=== PATIENT | female | born 1980 | race Caucasian/White ===

== ENCOUNTER 2018-03-14 19:38 | Outpatient (CLI) | payer BC ==
[2018-03-14 20:21] VITALS: BP 120/63; PULSE 85; RESP 16; TEMP 97.1
--- NOTE | 2018-03-17 10:05 | P.MSEPDOC ---
Presenting Problems - Arrival Data Date of Arrival on Unit: 03/14/18 Time of Arrival on Unit: 19:33 Mode of Transport: Wheelchair - Complaint OB-Reason for Admission/Chief Complaint: Possible Onset of Labor Comment: 03/14/18 @1530 Medical History - Information : 3 Para: 2 Term: 2 : 0 Abortions: Spontaneous or Elective: 0 Number of Living Children: 2 - Gestational Age Gestational Age by DOC (wks/days): 37 Weeks and 6 Days - History Sexually Transmitted Diseases: HSV Comment: on valtrex, no sxs Review of Systems - Review of Systems Constitutional: No problems Breast: No problems ENT: No problems Cardiovascular: No problems Respiratory: No problems Gastrointestinal: No problems Genitourinary: No problems Musculoskeletal: No problems Neurological: No problems Skin: No problems Vital Signs - Temperature Temperature: 97.1 F Temperature Source: Temporal Artery Scan - Pulse Right Sitting Brachial Pulse Rate: 85 Pulse Assessment Method: Automatic Cuff - Respirations Respiratory Rate: 16 - Blood Pressure Right Arm Blood Pressure: 120/63 Blood Pressure Mean: 82 Blood Pressure Source: Automatic Cuff Medical Screen Scoring (Pre) - Cervical Exam Dilation: 1-3 cm = 1 Effacement: Exam Deferred Membranes: Intact - Uterine Contractions Frequency: > 5 minutes apart = 1 Duration: N/A Intensity: N/A - Maternal Vital Signs Maternal Temperature: N/A Maternal Blood Pressure: N/A Signs of Preeclampsia: N/A Maternal Respirations: N/A - Pain Assessment Pain Location and Character: Abdomen Pain Scale Used: Numeric (1 - 10) Pain Intensity: 4 Pain Management Goal: 2 Pain Description: *Acute, Cramping Pain Radiation Location: none Pain Frequency: Intermittent Pain Duration: 2 Pain Duration Units: Hours Pain Behavior: None Exhibited Pain Aggravating Factors: None Non-Pharmacological Interventions: Relaxation Technique - Maternal Trauma Maternal Trauma: N/A - Assessment Baseline FHR: 135 Heart Rate - NICHD Category: Category I (Normal) = 0 NST: Reactive Position: N/A Station: N/A - Total Score Total Score (Pre): 2 - Level of Risk Level of Risk: Low (0-5) Physician Notification (Pre) - Physician Notified Physician Notified Date: 03/14/18 Physician Notified Time: 20:48 Physician/Practitioner Notifed:: L[place]yer New Order Received: Yes - Notification Comment Comment: discharge home with instructions Disposition - Disposition OB Disposition: Discharge to home, Written follow up instructions reviewed Discharge Date: 03/14/18 Discharge Time: 20:55 I agree with the RN Medical Screening Exam: Yes Risk & Benefit of care provided described in d/c instruction: Yes Diagnosis: FALSE LABOR AT OR AFTER 37 COMPLETED WEEKS OF GESTATION
== END 2018-03-14 20:55 | disposition home or self-care (01) ==
LOC: FBPOP 19:38
PROVIDERS: ATTEND Obstetrics & Gynecology
DX: O47.1 False labor at or after 37 completed weeks of gestation (principal); Z3A.37 37 weeks gestation of pregnancy
CPT/HCPCS: 59025; 99213

== ENCOUNTER → 2018-03-15 | Outpatient (CLI) | payer BC ==
--- NOTE | 2018-03-15 21:47 | US ---
EXAMINATION TYPE: US OB limited DATE OF EXAM: 03/15/2018 COMPARISON: NONE CLINICAL HISTORY: KARINA. KARINA check EXAM PERFORMED: Transabdominal (TA) GESTATIONAL AGE / DATING Physician Established: (38 weeks/0 days) EDC: 03/29/2018 No growth performed on today?s study per ordering physician SURVEY KARINA: 16.06 cm Normal Ultrasound evidence of premature rupture of membranes? No HEART RATE: 136 bpm RHYTHM: Normal IMPRESSION: Negative examination.
== END ==
LOC: FBPOP 20:00
PROVIDERS: ATTEND Obstetrics & Gynecology
DX: O47.1 False labor at or after 37 completed weeks of gestation (principal); Z3A.38 38 weeks gestation of pregnancy
CPT/HCPCS: 76815

== ENCOUNTER 2018-03-31 20:54 | Inpatient (IN) | payer BC ==
[2018-03-31] MEDS ORDERED: OXYTOCIN 20 UNITS/1000 ML NS 1,000 ML IV SCH (21:30)
[2018-03-31] MEDS ORDERED: TERBUTALINE 1 MG/ML VIAL SQ PRN (21:30)
[2018-03-31] MEDS ORDERED: OXYTOCIN 10 UNIT/ML 1 ML VIAL IM PRN (21:30)
[2018-03-31] MEDS ORDERED: METHYLERGONOVINE 0.2 MG/ML 1 ML AMP IM PRN (21:30)
[2018-03-31] MEDS ORDERED: LIDOCAINE 1% (PF) 10 MG/ML (30 ML SDV) SQ PRN (21:30)
[2018-03-31] MEDS ORDERED: CARBOPROST TROMETHAMINE 250 MCG/ML 1 ML AMP IM PRN (21:30)
[2018-03-31] MEDS ORDERED: BUTORPHANOL 1 MG/ML 1 ML VIAL IV PRN (21:34)
[2018-03-31] MEDS: LACTATED RINGERS 1,000 ML IV SCH (22:07)
[2018-03-31 22:20] LABS: Basophils % (A) 0 %; Eosinophils # (A) 0.1 k/uL (0-0.7); Eosinophils % (A) 1 %; HGB 12.7 gm/dL (11.4-16.0); Lymphocytes # (A) 2.1 k/uL (1.0-4.8); Lymphocytes % (A) 21 %; MCH 31.2 pg (25.0-35.0); MCHC 34.4 g/dL (31.0-37.0); MCV 90.8 fL (80.0-100.0); Mean Platelet Volume 8.4; Monocytes # (A) 0.5 k/uL (0-1.0); Monocytes % (A) 5 %; Neutrophils # (A) 7.1 k/uL (1.3-7.7); Neutrophils % (A) 71 %; Platelet Count 179 k/uL (150-450); RBC 4.08 m/uL (3.80-5.40)
[2018-04-01] MEDS: LACTATED RINGERS 1,000 ML IV SCH ×2 (02:10→03:13)
[2018-04-01] MEDS ORDERED: ROPIVACAINE 100 MG, fentaNYL (PF) 200 MCG in SODIUM CHLORIDE 0.9% 76 ML EPIDURAL ONE (02:29)
[2018-04-01] MEDS ORDERED: BENZOCAINE/MENTHOL SPRAY 1 GM/SPRAY AEROSOL TOPICAL PRN ×2 (04:35→04:40)
--- NOTE | 2018-04-01 04:37 | P.HPOB ---
History of Present Illness H&P Date: 04/01/18 Chief Complaint: Labor at 40-2/7 weeks' This is a 37-year-old 3 para 2002 woman with an estimated due date of presents at 40-3/7 weeks gestation with spontaneous rupture of membranes not in active labor. Her has been uncomplicated. She is on Valtrex HSV suppression with no recent outbreaks or prodromal symptoms. She describes spontaneous rupture of clear fluid at approximately 1815 on 713. She denies vaginal bleeding. She is not having regular contractions. 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 Obstetric history: Normal spontaneous vaginal deliveries at term in 2008 and 2013. Laboratory data group B strep negative and blood type O+ antibody screen negative, rubella immune, VDRL nonreactive, hep Elly surface antigen negative, HIV negative, gonorrhea and clinic cultures negative, TSH within normal limits. Review of Systems All systems: negative Past Medical History Past Medical History: Thyroid Disorder Additional Past Medical History / Comment(s): hypothyroid History of Any Multi-Drug Resistant Organisms: None Reported Additional Past Surgical History / Comment(s): wisdom teeth, exploratory lap for endometriosis Past Anesthesia/Blood Transfusion Reactions: No Reported Reaction Past Psychological History: Anxiety Additional Psychological History / Comment(s): not currently medicated Smoking Status: Never smoker Past Alcohol Use History: None Reported Past Drug Use History: None Reported - Past Family History Father Family Medical History: Cancer, Hypertension Additional Family Medical History / Comment(s): prostate cancer Mother Family Medical History: Thyroid Disorder Medications and Allergies Home Medications Medication Instructions Recorded Confirmed Type Levothyroxine Sodium [Synthroid] 1 tab PO DAILY 03/14/18 03/31/18 History Pnv,Calcium 72/Iron/Folic Acid 1 tab PO DAILY 03/31/18 03/31/18 History [ Plus Tablet] valACYclovir [Valtrex] 500 mg PO DAILY 03/31/18 03/31/18 History Allergies Allergy/AdvReac Type Severity Reaction Status Date / Time No Known Allergies Allergy Verified 03/31/18 21:04 Exam Vital Signs Temp Pulse Resp BP Pulse Ox 03/31/18 21:20 97.3 F L 85 16 110/71 97 03/31/18 21:06 97.3 F L 85 16 110/71 97 Intake and Output 03/31/18 03/31/1818 14:59 22:59 06:59 Intake Total 1999 Balance 1999 Intake: Intake, IV Titration 2000 Amount Lactated Ringers 1,000 ml 2000 @ 125 mls/hr IV .Q8H SUZANNE Rx#:[id number] Other: # Voids 1 Weight 83.007 kg Per labor and delivery driver/customer service spontaneous rupture of membranes is confirmed with amnio sure test. She has 2 cm dilated the head not engaged. heart tones are reassuring by external monitoring and she has some uterine irritability. Results Result Diagrams: 03/31/18 21:51 Assessment and Plan (1) Advanced maternal age (AMA) in Current Visit: Yes Status: Acute Code(s): [id number] - SNOMED Code(s): 399775183 (2) Spontaneous rupture of membranes Current Visit: Yes Status: Acute Code(s): EWS8343 - SNOMED Code(s): 054610372 Plan: 37-year-old 3 para 2 woman at 40-3/7 weeks gestation admitted with spontaneous rupture of membranes not in labor. She is group B strep negative and Rh+. Pitocin induction of labor will be initiated. Epidural for pain control upon request in active labor. status reassuring by external monitoring. Anticipate normal spontaneous vaginal delivery.
[2018-04-01] MEDS ORDERED: SIMETHICONE 80 MG CHEWABLE PO PRN (04:40)
[2018-04-01] MEDS ORDERED: ZOLPIDEM 5 MG TAB PO PRN (04:40)
[2018-04-01] MEDS ORDERED: WITCH HAZEL 1 EACH MED..PAD TOPICAL PRN (04:40)
[2018-04-01] MEDS ORDERED: diphenhydrAMINE 50 MG CAP PO PRN (04:40)
[2018-04-01] MEDS ORDERED: diphenhydrAMINE 25 MG CAP PO PRN (04:40)
[2018-04-01] MEDS ORDERED: diphenhydrAMINE 50 MG/ML 1 ML VIAL IVP PRN ×2 (04:40)
[2018-04-01] MEDS ORDERED: LANOLIN CREAM 5 GM TUBE TOPICAL PRN (04:40)
[2018-04-01] MEDS ORDERED: HYDROCORTISONE 2.5% RECTAL CREAM 30 GM TUBE RECTAL PRN (04:40)
--- NOTE | 2018-04-01 04:40 | P.PROBDLV ---
Vaginal Delivery Note - . Vaginal Delivery Note: Findings: Male infant in the vertex left occiput anterior position with Apgars of 9 at 1 minute and 9 at 5 minutes weighing 9 lbs. 1 oz., 4100 g. First- degree perineal laceration. Intact, three-vessel cord placenta. EBL 150 mL's. Delivery summary: This is a 37-year-old 3 para 2001 woman who presented at 40-3/7 weeks gestation with spontaneous rupture of membranes not in labor. She was admitted and received Pitocin induction of labor. She received an epidural anesthetic. She underwent an unremarkable progression to complete cervical dilation. At the time of complete she did have some variable heart rate decelerations that was managed with position changes decreasing the Pitocin and maternal oxygen. On these resolved and she was repositioned in the modified workup Kori position to push. She did push with excellent maternal effort to . With additional maternal effort the head delivered from the left occiput anterior position on there was a compound presentation with the hand below the head. The rest the was delivered without difficulty onto the field and the nose and mouth were further bulb suctioned. The infant was placed on the maternal abdomen. Apgars were 9 at 1 minute and 9 at 5 minutes. Eventually the cord was clamped and cut. An intact , three-vessel cord placenta was then expressed and the uterus was massaged and noted to be firm at the level of the umbilicus. Perineum was infused with lidocaine and a small first-degree laceration was closed using 3-0 Vicryl suture. The patient received Pitocin following delivery of the placenta. The rest the vagina and cervix were inspected no further lacerations were noted. EBL was approximately 150 mL's. All counts were correct. Both mother and infant were doing well post delivery in the room.
[2018-04-01] MEDS ORDERED: OXYTOCIN 20 UNITS/1000 ML NS 1,000 ML IV SCH (04:45)
[2018-04-01] MEDS: IBUPROFEN 600 MG TAB PO PRN ×2 (11:35→19:32)
[2018-04-01] MEDS: ACETAMINOPHEN TAB 325 MG TAB PO PRN ×2 (15:43→23:29)
[2018-04-01] MEDS: SENNOSIDES-DOCUSATE SODIUM 1 EACH TAB PO SCH (19:33)
[2018-04-02] MEDS: IBUPROFEN 600 MG TAB PO PRN ×2 (04:49→11:17)
--- NOTE | 2018-04-02 09:12 | P.DS ---
Providers Date of admission: 03/31/18 21:18 Expected date of discharge: 04/02/18 Attending physician: Pascual Nevarez Primary care physician: Pascual Nevarez - Discharge Diagnosis(es) (1) Advanced maternal age (AMA) in Current Visit: Yes Status: Acute (2) Spontaneous rupture of membranes Current Visit: Yes Status: Acute (3) Normal spontaneous vaginal delivery Current Visit: Yes Status: Acute Hospital Course: This is a 37-year-old 3 now para 3 woman who presented at 40-2/7 weeks' gestation with spontaneous rupture of membranes. She underwent Pitocin induction of labor. She received an epidural anesthetic. She went on to deliver a liveborn male infant over a first-degree perineal laceration with Apgars of 8 at 1 minute and 9 at 5 minutes. Weight 9 lbs. 1 oz. Patient's course was unremarkable. The day #1 she was ambulating and voiding without difficulty, tolerating a general diet and her lochia was decreasing. She was breast-feeding successfully. Her pain was well- controlled. Her vital signs were stable. She was therefore discharged home with routine instructions for care and follow-up. Plan - Discharge Summary New Discharge Prescriptions: No Action Levothyroxine Sodium [Synthroid] 1 tab PO DAILY valACYclovir [Valtrex] 500 mg PO DAILY Pnv,Calcium 72/Iron/Folic Acid [ Plus Tablet] 1 tab PO DAILY Discharge Medication List Levothyroxine Sodium [Synthroid] 1 tab PO DAILY 03/14/18 [History] Pnv,Calcium 72/Iron/Folic Acid [ Plus Tablet] 1 tab PO DAILY 03/31/18 [ History] valACYclovir [Valtrex] 500 mg PO DAILY 03/31/18 [History] Follow up Appointment(s)/Referral(s): Pascual Nevarez MD [Primary Care Provider] - 6 Weeks Activity/Diet/Wound Care/Special Instructions: Follow-up in the office in 6 weeks . Call with any concerning signs or symptoms including heavy vaginal bleeding, severe abdominal pain, fever greater than 101, swelling or redness of the lower extremities, foul vaginal discharge, or signs of depression. Nothing in the vagina for 6 weeks after delivery, specifically no intercourse. Discharge Disposition: HOME SELF-CARE
[2018-04-02 10:06] VITALS: BP 116/65; PULSE 71; RESP 18; TEMP 97.5
[2018-04-02] MEDS: SENNOSIDES-DOCUSATE SODIUM 1 EACH TAB PO SCH (11:17)
== END 2018-04-02 12:00 | disposition home or self-care (01) | DRG 774 ==
LOC: FBPOP 20:54 → 4FBP 21:18
PROVIDERS: ADMIT Obstetrics & Gynecology; ATTEND Obstetrics & Gynecology
PROC: 3E033VJ Introduction of Other Hormone into Peripheral Vein, Percutaneous Approach (ICD-10-PCS; principal; 2018-03-31)
PROC: 00HU33Z Insertion of Infusion Device into Spinal Canal, Percutaneous Approach (ICD-10-PCS; principal; 2018-03-31)
PROC: 3E0R3NZ Introduction of Analgesics, Hypnotics, Sedatives into Spinal Canal, Percutaneous Approach (ICD-10-PCS; principal; 2018-03-31)
PROC: 10E0XZZ Delivery of Products of Conception, External Approach (ICD-10-PCS; principal; 2018-03-31)
PROC: 0HQ9XZZ Repair Perineum Skin, External Approach (ICD-10-PCS; principal; 2018-03-31)
DX: O48.0 Post-term pregnancy (principal); O98.32 Other infections with a predominantly sexual mode of transmission complicating childbirth; Z37.0 Single live birth; Z3A.40 40 weeks gestation of pregnancy; O32.6XX0 Maternal care for compound presentation, not applicable or unspecified; O70.0 First degree perineal laceration during delivery; O76 Abnormality in fetal heart rate and rhythm complicating labor and delivery; E03.9 Hypothyroidism, unspecified; O99.284 Endocrine, nutritional and metabolic diseases complicating childbirth; Z79.890 Hormone replacement therapy; Z79.899 Other long term (current) drug therapy; Z82.49 Family history of ischemic heart disease and other diseases of the circulatory system
CPT/HCPCS: 59025; 84112; 85025; 99213

== ENCOUNTER 2020-10-14 14:09 | Outpatient (CLI) | payer BC ==
[2020-10-14 14:52] VITALS: BP 98/57; PULSE 82; RESP 16; TEMP 97.9
--- NOTE | 2020-11-01 10:12 | P.MSEPDOC ---
Presenting Problems - Arrival Data Date of Arrival on Unit: 10/14/20 Time of Arrival on Unit: 14:09 Mode of Transport: Wheelchair - Complaint OB-Reason for Admission/Chief Complaint: Rule Out PROM Medical History - Information : 4 Para: 3 Term: 3 : 0 Abortions: Spontaneous or Elective: 0 Number of Living Children: 3 - Gestational Age Gestational Age by DOC (wks/days): 21 Weeks and 1 Days Review of Systems - Review of Systems Constitutional: No problems Breast: No problems ENT: No problems Cardiovascular: No problems Respiratory: No problems Gastrointestinal: No problems Genitourinary: No problems Musculoskeletal: No problems Neurological: No problems Skin: No problems Vital Signs - Temperature Temperature: 97.9 F Temperature Source: Oral - Pulse Right Brachial Pulse Rate: 82 Pulse Assessment Method: Auscultation - Respirations Respiratory Rate: 16 Oxygen Delivery Method: Room Air O2 Sat by Pulse Oximetry: 100 - Blood Pressure Right Arm Blood Pressure: 98/57 Blood Pressure Mean: 70 Blood Pressure Source: Automatic Cuff Medical Screen Scoring (Pre) - Cervical Exam Dilation: Exam Deferred Effacement: Exam Deferred Membranes: Intact - Uterine Contractions Frequency: N/A Duration: N/A Intensity: N/A - Maternal Vital Signs Maternal Temperature: N/A Maternal Blood Pressure: N/A Signs of Preeclampsia: N/A Maternal Respirations: N/A - Maternal Trauma Maternal Trauma: N/A - Assessment - Baby A Baseline FHR: 140 Heart Rate - NICHD Category: Category I (Normal) = 0 NST: Reactive Position: N/A Station: N/A - Total Score - Baby A Total Score - Baby A: 0 - Total Score - Baby B Total Score - Baby B: 0 - Total Score - Baby C Total Score - Baby C: 0 - Level of Risk - Baby A Level of Risk - Baby A: Low (0-5) - Level of Risk - Baby B Level of Risk - Baby B: Low (0-5) - Level of Risk - Baby C Level of Risk - Baby C: Low (0-5) Physician Notification (Pre) - Physician Notified Physician Notified Date: 10/14/20 Physician Notified Time: 14:45 New Order Received: Yes - Notification Comment Comment: Dr. Nevarez given report on pt. Pt c/o. VS WNL. FHTs found between 140-155bpm. Spec exam performed. No fluid noted per RN. Discharge noted. Amnsiure negative. Orders recieved to d/c pt to home. To educate pt to follow up with office if fluid increases. Disposition - Disposition OB Disposition: Discharge to home Discharge Date: 10/14/20 Discharge Time: 14:49 I agree with the RN Medical Screening Exam: Yes Physician's MSE Comment: I have neither seen nor examined the patient. Case reviewed; plan agreed upon as documented in EMR&OBIX.: Yes Diagnosis: RELATED CONDITIONS, UNSPECIFIED, SECOND TRIMESTER
== END 2020-10-14 14:50 | disposition home or self-care (01) ==
LOC: FBPOP 14:09
PROVIDERS: ATTEND Obstetrics & Gynecology
DX: O26.92 Pregnancy related conditions, unspecified, second trimester (principal); Z3A.21 21 weeks gestation of pregnancy
CPT/HCPCS: 84112; 99213

== ENCOUNTER 2021-02-12 16:49 | Outpatient (CLI) | payer OTHER ==
[2021-02-12 18:30] VITALS: BP 120/64; PULSE 75; RESP 16; TEMP 97.8
--- NOTE | 2021-03-10 09:34 | P.MSEPDOC ---
Presenting Problems - Arrival Data Date of Arrival on Unit: 02/12/21 Time of Arrival on Unit: 16:49 Mode of Transport: Ambulatory - Complaint OB-Reason for Admission/Chief Complaint: Possible Onset of Labor Medical History - Information : 4 Para: 3 Term: 3 : 0 Abortions: Spontaneous or Elective: 0 Number of Living Children: 3 - Gestational Age Gestational Age by DOC (wks/days): 38 Weeks and 3 Days Review of Systems - Review of Systems Constitutional: No problems Breast: No problems ENT: No problems Cardiovascular: No problems Respiratory: No problems Gastrointestinal: No problems Genitourinary: No problems Musculoskeletal: No problems Neurological: No problems Skin: No problems Vital Signs - Temperature Temperature: 97.8 F Temperature Source: Oral - Pulse Right Brachial Pulse Rate: 75 Pulse Assessment Method: Automatic Cuff - Respirations Respiratory Rate: 16 Oxygen Delivery Method: Room Air O2 Sat by Pulse Oximetry: 98 - Blood Pressure Right Arm Blood Pressure: 120/64 Blood Pressure Mean: 82 Blood Pressure Source: Automatic Cuff Medical Screen Scoring - Assessment - Baby A Baseline FHR: 120 Physician Notification - Physician Notified Physician Notified Date: 02/12/21 Physician Notified Time: 18:14 Physician: Emerita Morgan New Order Received: Yes - Notification Comment Comment: Dr. Morgan given report on pt. Pt c/o. VS WNL. Reactive NST. 2-3 contractions noted within 60 minutes strip. Vag exam of 3.5/50/-3 with no change after 1 hr. GBS NEG. Orders recieved to d/c pt to home. To educate pt to stay hydrated and no intercourse until next office apt. Disposition - Disposition OB Disposition: Physician follow up in office, Discharge to home Discharge Date: 02/12/21 Discharge Time: 18:20 I agree with the RN Medical Screening Exam: Yes Case reviewed; plan agreed upon as documented in EMR&OBIX.: Yes Comments: Patient was neither seen nor examined by me. Diagnosis: FALSE LABOR AT OR AFTER 37 COMPLETED WEEKS OF GESTATION
== END 2021-02-12 18:20 | disposition home or self-care (01) ==
LOC: FBPOP 16:49
PROVIDERS: ATTEND Obstetrics & Gynecology
DX: O47.1 False labor at or after 37 completed weeks of gestation (principal); Z3A.38 38 weeks gestation of pregnancy
CPT/HCPCS: 59025; G0463; 99213

== ENCOUNTER 2021-02-18 06:07 | Inpatient (IN) | payer OTHER ==
[2021-02-18] MEDS ORDERED: METHYLERGONOVINE 0.2 MG/ML 1 ML AMP IM PRN (06:16)
[2021-02-18] MEDS ORDERED: LIDOCAINE 0.5% (PF) 5 MG/ML (50 ML SDV) SQ PRN (06:16)
[2021-02-18] MEDS ORDERED: OXYTOCIN 10 UNIT/ML 1 ML VIAL IM PRN (06:16)
[2021-02-18] MEDS ORDERED: CARBOPROST TROMETHAMINE 250 MCG/ML 1 ML AMP IM PRN (06:16)
[2021-02-18] MEDS ORDERED: TERBUTALINE 1 MG/ML VIAL SQ PRN (06:16)
[2021-02-18] MEDS ORDERED: OXYTOCIN 30 UNITS/500 ML NS 30 UNIT in SALINE 1 500ML.BAG IV SCH ×2 (06:30→11:45)
[2021-02-18] MEDS: LACTATED RINGERS 1,000 ML IV SCH ×2 (06:36→09:54)
[2021-02-18 06:48] LABS: Basophils % (A) 0 %; Eosinophils # (A) 0.2 k/uL (0-0.7); Eosinophils % (A) 2 %; HCT 36.3 % (34.0-46.0); HGB 12.7 gm/dL (11.4-16.0); Lymphocytes # (A) 1.7 k/uL (1.0-4.8); Lymphocytes % (A) 21 %; MCH 31.9 pg (25.0-35.0); MCHC 34.9 g/dL (31.0-37.0); MCV 91.4 fL (80.0-100.0); Mean Platelet Volume 8.3; Monocytes # (A) 0.5 k/uL (0-1.0); Monocytes % (A) 6 %; Neutrophils # (A) 5.7 k/uL (1.3-7.7); Neutrophils % (A) 70 %; Platelet Count 185 k/uL (150-450); RBC 3.97 m/uL (3.80-5.40); RDW 12.4 % (11.5-15.5); WBC 8.1 k/uL (3.8-10.6)
[2021-02-18] MEDS ORDERED: BUTORPHANOL 1 MG/ML 1 ML VIAL IV PRN (08:33)
--- NOTE | 2021-02-18 08:33 | P.HPOB ---
History of Present Illness H&P Date: 02/18/21 Chief Complaint: IUP @ 39 2/7 weeks This is a 40-year-old 4 para 3003 at 39-2/7 weeks with an estimated due date of 02/23 based on first trimester ultrasound. Patient has been receiving routine care with Dr. Nevarez. Patient does have history of HSV for which she takes acyclovir 400 mg twice daily. Patient was diagnosed with COVID 19 at 29 weeks and has been undergoing testing since 32 weeks. Patient is known AMA positive and had a negative maternity 21 screen. On bloodwork this patient is a blood type of O+, rubella status immune, RPR nonreactive, hepatitis B surface antigen negative, HIV negative, she did have a -1 hour gestational diabetes screen, group beta strep was negative on 01/27. Patient does note good movement, denies contractions vaginal bleeding or loss of fluid prior to today's visit. Review of Systems Constitutional: Denies chills, Denies fatigue, Denies fever Ears, nose, mouth and throat: Denies headache Cardiovascular: Reports leg edema Respiratory: Denies dyspnea Gastrointestinal: Denies constipation, Denies diarrhea, Denies nausea, Denies vomiting Genitourinary: Reports Past Medical History Past Medical History: Thyroid Disorder Additional Past Medical History / Comment(s): hypothyroid, HSV History of Any Multi-Drug Resistant Organisms: None Reported Additional Past Surgical History / Comment(s): wisdom teeth, exploratory lap for endometriosis Past Anesthesia/Blood Transfusion Reactions: No Reported Reaction Past Psychological History: Anxiety Smoking Status: Never smoker Past Alcohol Use History: None Reported Past Drug Use History: None Reported - Past Family History Father Family Medical History: Cancer, Hypertension Additional Family Medical History / Comment(s): prostate cancer Mother Family Medical History: Thyroid Disorder Medications and Allergies Home Medications Medication Instructions Recorded Confirmed Type Levothyroxine Sodium [Synthroid] 1 tab PO DAILY 03/14/18 02/18/21 History Pnv,Calcium 72/Iron/Folic Acid 1 tab PO DAILY 03/31/18 02/18/21 History [ Plus Tablet] Acyclovir [Zovirax] 200 mg PO BID 02/12/21 02/18/21 History Sertraline [Zoloft] 50 mg PO DAILY 02/12/21 02/18/21 History Allergies Allergy/AdvReac Type Severity Reaction Status Date / Time No Known Allergies Allergy Verified 02/12/21 17:00 Exam Osteopathic Statement: *. No significant issues noted on an osteopathic structu ral exam other than those noted in the History and Physical/Consult. 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 heart tones are noted to be category 1 and she is sylwia every 2-3 minutes. Results Result Diagrams: 02/18/21 06:33 Assessment and Plan (1) 39 weeks gestation of Current Visit: Yes Status: Acute Code(s): Z3A.39 - 39 WEEKS GESTATION OF SNOMED Code(s): 57896134 (2) Advanced maternal age (AMA) in Current Visit: No Status: Acute Code(s): PXI3671 - SNOMED Code(s): 489005009 Plan: 32-year-old 003 at 39-2/7 weeks that presents to labor and delivery for el ective induction of labor. Pitocin induction of labor is begun per hospital protocol, patient is offered epidural versus Stadol she will consider. Anticipate spontaneous vaginal delivery.
[2021-02-18] MEDS ORDERED: SODIUM CHLORIDE 0.9% 100 ML BAG ONE (09:40)
[2021-02-18] MEDS ORDERED: ROPIVACAINE 5MG/ML 20ML VIAL ONE (09:40)
[2021-02-18] MEDS ORDERED: fentaNYL (PF) 50 MCG/ML 5 ML AMP ONE (09:40)
[2021-02-18] MEDS: LEVOTHYROXINE 125 MCG TAB PO SCH (09:56)
[2021-02-18] MEDS ORDERED: HYDROCORTISONE 2.5% RECTAL CREAM 30 GM TUBE RECTAL PRN (11:34)
[2021-02-18] MEDS ORDERED: BENZOCAINE/MENTHOL SPRAY 1 GM/SPRAY AEROSOL TOPICAL PRN (11:34)
[2021-02-18] MEDS ORDERED: SIMETHICONE 80 MG CHEWABLE PO PRN (11:34)
[2021-02-18] MEDS ORDERED: ZOLPIDEM 5 MG TAB PO PRN (11:34)
[2021-02-18] MEDS ORDERED: diphenhydrAMINE 50 MG CAP PO PRN (11:34)
[2021-02-18] MEDS ORDERED: ACETAMINOPHEN TAB 325 MG TAB PO PRN (11:34)
[2021-02-18] MEDS ORDERED: diphenhydrAMINE 50 MG/ML 1 ML VIAL IVP PRN ×2 (11:34)
[2021-02-18] MEDS ORDERED: diphenhydrAMINE 25 MG CAP PO PRN (11:34)
[2021-02-18] MEDS ORDERED: LANOLIN CREAM 5 GM TUBE TOPICAL PRN (11:34)
--- NOTE | 2021-02-18 11:38 | P.PROBDLV ---
Vaginal Delivery Note - . Vaginal Delivery Note: This is a 40 yo at 39-2/7 weeks that presented to labor and delivery for elective induction of labor. Patient been receiving routine care which had been essentially uncomplicated with Dr. Sher for full details on this patient please see the dictated history and physical. Patient was admitted to labor and delivery Pitocin induction of labor was begun per hospital protocol. Patient underwent amniotomy and clear fluid was obtained. Patient became uncomfortable and did request epidural placement. Epidural was placed without difficulty. Soon after epidural she quickly progressed to complete began pushing and had a normal spontaneous vaginal delivery of a viable female with a right compound hand, loose nuchal cord. At 1119, weight of 7 lbs. 15 oz. and Apgars of 9 and 9 at one and 5 minutes respect daily. After two-minute delayed the umbo cord was doubly clamped and cut and the placenta was delivered spontaneously intact with a three-vessel cord being noted. A second-degree midline laceration was noted this was repaired in the usual fashion with 3-0 Rapide. Hemostasis was appreciated after repair. Uterus is noted to be firm and below the umbilicus, estimated blood loss 200 mL. Patient and tolerated delivery well and are resting comfortably. All counts noted be correct 2.
[2021-02-18] MEDS: IBUPROFEN 600 MG TAB PO SCH ×2 (12:44→19:33)
[2021-02-18] MEDS: PRENATAL VIT-IRON-FOLIC ACID 1 EACH CAP PO SCH (12:44)
[2021-02-18] MEDS: SENNOSIDES-DOCUSATE SODIUM 1 EACH TAB PO SCH (19:33)
[2021-02-18] MEDS: SERTRALINE 50 MG TAB PO SCH (19:36)
[2021-02-19] MEDS: IBUPROFEN 600 MG TAB PO SCH ×2 (02:02→09:39)
[2021-02-19] MEDS: LACTATED RINGERS 1,000 ML IV SCH (02:03)
[2021-02-19] MEDS: LEVOTHYROXINE 125 MCG TAB PO SCH (07:08)
--- NOTE | 2021-02-19 08:53 | P.DS ---
Providers Date of admission: 02/18/21 06:07 Expected date of discharge: 02/19/21 Attending physician: Pascual Nevarez Primary care physician: Stated None - Discharge Diagnosis(es) (1) 39 weeks gestation of Current Visit: Yes Status: Acute (2) Advanced maternal age (AMA) in Current Visit: No Status: Acute (3) Normal spontaneous vaginal delivery Current Visit: No Status: Acute Hospital Course: This is a 40-year-old G4 now P4 status post normal spontaneous vaginal delivery. Patient presented at 39-2/7 weeks for elective induction of labor. For full details on this patient please see the dictated history and physical. Patient was admitted to labor and delivery and Pitocin induction of labor was begun. Amniotomy was performed and clear fluid was obtained. Patient progressed through labor eventually becoming uncomfortable and requesting epidural placement. Epidural was placed without difficulty by the anesthesia department. Patient quickly progressed to complete began pushing and had normal spontaneous vaginal delivery of a viable female with a compound hand and loose nuchal cord at 1119, weight of 7 lbs. 15 oz. and Apgars of 9 and 9 at one and 5 minutes respectively patient did sustain a second-degree midline laceration which was repaired in the usual fashion with 3-0 Rapide. Patient has done well . On this day #1 she is ambulating and voiding without difficulty. She is tolerating a regular diet. She states her pain is well- controlled and she would like discharge home. Patient Condition at Discharge: Good Plan - Discharge Summary New Discharge Prescriptions: No Action Levothyroxine Sodium [Synthroid] 1 tab PO DAILY Pnv,Calcium 72/Iron/Folic Acid [ Plus Tablet] 1 tab PO DAILY Sertraline [Zoloft] 50 mg PO DAILY Acyclovir [Zovirax] 200 mg PO BID Discharge Medication List Levothyroxine Sodium [Synthroid] 1 tab PO DAILY 03/14/18 [History] Pnv,Calcium 72/Iron/Folic Acid [ Plus Tablet] 1 tab PO DAILY 03/31/18 [History] Acyclovir [Zovirax] 200 mg PO BID 02/12/21 [History] Sertraline [Zoloft] 50 mg PO DAILY 02/12/21 [History] Follow up Appointment(s)/Referral(s): Pascual Nevarez MD [STAFF PHYSICIAN] - 6 Weeks Patient Instructions/Handouts: Vaginal Delivery (GEN), Vaginal Delivery (DC) Discharge Disposition: HOME SELF-CARE
[2021-02-19] MEDS: SERTRALINE 50 MG TAB PO SCH (09:37)
[2021-02-19 10:33] VITALS: BP 110/70; PULSE 65; RESP 16; TEMP 98
[2021-02-19] MEDS: SENNOSIDES-DOCUSATE SODIUM 1 EACH TAB PO SCH (10:49)
[2021-02-19] MEDS: PRENATAL VIT-IRON-FOLIC ACID 1 EACH CAP PO SCH (10:49)
== END 2021-02-19 13:00 | disposition home or self-care (01) | DRG 807 ==
LOC: 4FBP 06:07
PROVIDERS: ADMIT Obstetrics & Gynecology; ATTEND Obstetrics & Gynecology
PROC: 10E0XZZ Delivery of Products of Conception, External Approach (ICD-10-PCS; principal; 2021-02-18)
PROC: 0KQM0ZZ Repair Perineum Muscle, Open Approach (ICD-10-PCS; 2021-02-18)
DX: O69.81X0 Labor and delivery complicated by cord around neck, without compression, not applicable or unspecified (principal); Z37.0 Single live birth; O70.1 Second degree perineal laceration during delivery; Z86.16 Personal history of COVID-19; Z3A.39 39 weeks gestation of pregnancy
CPT/HCPCS: 85025; 86850; 86900; 86901